=== PATIENT | male | born 1960 | race Caucasian/White ===

== ENCOUNTER 2019-11-22 07:09 | Outpatient (CLI) | payer OTHER, SELFPAY ==
--- NOTE | ~2019-11-22 | XR_ITS ---
EXAMINATION: XR shoulder LT min 2V DATE: 11/22/2019 07:35 INDICATION: Left shoulder pain. TECHNIQUE: 4 views of left shoulder were obtained. COMPARISON: None. FINDINGS: Bone alignment is normal. No fracture. There is mild osteoarthritis of glenohumeral joint a nd acromioclavicular joint characterized by tiny marginal osteophytes. IMPRESSION: 1. Mild polyarticular osteoarthritis. Reviewed, dictated and finalized at location A.
== END 2019-11-22 07:10 | disposition home or self-care (01) ==
DX: M25.512 Pain in left shoulder (principal); M19.012 Primary osteoarthritis, left shoulder
CPT/HCPCS: 73030

== ENCOUNTER 2020-12-17 09:16 | Outpatient (CLI) | payer OTHER, SELFPAY ==
--- NOTE | ~2020-12-17 | XR_ITS ---
XR hip RT min 3V w AP pelvis DATE: 12/17/2020 09:44 INDICATION: Chronic right hip pain. No known injury. TECHNIQUE: AP pelvis. AP, lateral, crosstable lateral views of right hip COMPARISON: None FINDINGS: No pelvic fracture or bone destruction. The pubic symphysis and sacroiliac joints are intac t. Hip joint spaces are symmetric and relatively well preserved. No fracture, dislocation, avascular necrosis or bone destruction of the right hip. IMPRESSION: No significant abnormality Reviewed, dictated and finalized at location B. IMPRESSION: No significant abnormality
== END 2020-12-17 09:17 | disposition home or self-care (01) ==
LOC: ANHIMG 09:23
DX: M25.551 Pain in right hip (principal)
CPT/HCPCS: 73502

== ENCOUNTER → 2022-11-16 08:35 | Outpatient (CLI) | payer OTHER, SELFPAY ==
--- NOTE | ~2022-11-16 | MR_ITS ---
EXAMINATION: MR elbow RT wo con DATE: 11/16/2022 10:56 INDICATION: Tear of the distal right biceps tendon TECHNIQUE: Magnetic resonance imaging (MRI) of the right elbow was performed without intravenous cont rast. Sequences included coronal, axial, and sagittal PD-weighted FS FSE and coronal, axial, and sagi ttal PD-weighted FSE. COMPARISON: None FINDINGS: Osseous/other: Normal alignment. Normal marrow signal with no marrow edema, fracture, osteochondral lesion or abnor mal marrow replacing process. Mild osteoarthritis involving all 3 compartments of the elbow joint. Tendons: Triceps and brachialis tendons are normal. Moderate tendinopathy without tear at the distal biceps br achii tendon. Moderate tendinopathy and a couple small heterotopic ossicles within the common flexor tendon wad and mild tendinopathy and additional tiny heterotopic ossicle at the origin of the common extensor tendon wad. This could be related to either chronic enthesopathy or sequela of old trauma. Ligaments: The medial and lateral collateral ligament complexes are normal. Cubital tunnel: Cubital tunnel is unremarkable with normal signal and caliber of the ulnar nerve. Fluid: Physiologic amount of fluid the elbow joint. IMPRESSION: 1. Moderate tendinopathy without discrete tear at the distal biceps brachii tendon. 2. Tendinopathy and heterotopic ossicles at the epicondylar origins of the common flexor and extensor tendon wads which could represent sequela of chronic enthesopathy or old trauma. 3. 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 Reviewed, dictated and finalized at location L. IMPRESSION: 1. Moderate tendinopathy without discrete tear at the distal biceps brachii ten don. 2. Tendinopathy and heterotopic ossicles at the epicondylar origins of the comm on flexor and extensor tendon wads which could represent sequela of chronic ent hesopathy or old trauma. 3. 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
== END ==
PROVIDERS: PCP Specialist; Visit Provider Specialist
DX: S46.211A Strain of muscle, fascia and tendon of other parts of biceps, right arm, initial encounter (principal); M19.021 Primary osteoarthritis, right elbow; T14.90XA Injury, unspecified, initial encounter
CPT/HCPCS: 73221

== ENCOUNTER 2023-12-31 12:58 | Outpatient (CLI) | payer OTHER, SELFPAY ==
--- NOTE | 2023-12-31 13:32 | ECG_ITS ---
Test Date: 2023-12-31 13:45:30 Measurements Intervals Virgil Rate: 60 P: 40 MS: 153 QRS: 6 QRSD: 110 T: 36 QT: 396 QTc: 396 Interpretive Statements SINUS RHYTHM No previous ECG available for comparison Electronically Signed On 01-01-2024 10:14:34 CDT by Julio Saenz M.D.
== END 2023-12-31 12:59 | disposition home or self-care (01) ==
PROVIDERS: PCP Family Medicine; Visit Provider Surgery
DX: I10 Essential (primary) hypertension (principal); Z98.890 Other specified postprocedural states; Z01.818 Encounter for other preprocedural examination
CPT/HCPCS: 36415; 86850; 86900; 86901; 93005

== ENCOUNTER 2024-01-03 01:12 | Day surgery (SDC) | payer OTHER, SELFPAY ==
[2023-12-31 08:23] VITALS: BMI 27.3
--- NOTE | 2023-12-31 08:50 | SUR.PREOP ---
Report to the Outpatient Waiting Room, entrance under the green pavilion located off [facility], at time 1000 on date 01/03/24. Planned Procedure Time: 1200. Time changes happen often and if your time is changed the preop area will call you the afternoon before. - You and your visitor will be asked to self-screen and do not enter if you have any COVID symptoms. - A mask is optional within the hospital at this time. Patients may have clear liquids (water, carbonated beverages, clear teas, apple juice) until 3 hours prior to surgery with a maximum of 20 ounces. - No food from midnight until time of surgery - Infants may have breast milk until 4 hours before surgery, infant formula 6 hours prior to surgery. - Children will be allowed to drink immediately following surgery. If applicable, please bring a bottle or sippy cup to assist with drinking. Juice, water, soda, and popsicles are readily available. For infants on formula, please bring formula the day of surgery. Pacifiers are allowed. Take the following medications with a SIP of water the morning of surgery: N/A DO NOT STOP ANY OF YOUR OTHER PRESCRIPTION MEDICATIONS PRIOR TO SURGERY ?EXCEPT THE FOLLOWING Medications to discontinue per physician STOP ALL VITAMINS AND SUPPLIMENTS 3 DAYS PRIOR TO PROCEDURE Date to take last dose TOLD PT TO NOT TAKE AGAIN UNTIL AFTER PROCEDURE ON 12/31/23 Please no make-up, nail mongolian, hairspray, perfume, deodorant, or body powder the day of surgery. No jewelry (including any body piercings) or valuables the day of surgery, leave them at home. Please take a shower or bath the night before, or the morning of, surgery with an antibacterial soap. Wear comfortable, loose fitting clothing. Children are encouraged to wear pajamas. - Jewelry must be removed prior to entering the operating room. Rings and piercings that are not removed may be cut off. - The hospital will not accept responsibility for valuables. - Please leave all valuables, including medications, at home the day of surgery. If you are going home after surgery, a licensed truck driver rubbish collector must drive you home. - NO public transportation without another adult if you receive anesthesia. - We recommend that an adult stay with you for 24 hours following discharge. - We also recommend that you do not drive, make important decision, drink alcoholic beverages, or take any drugs that were not prescribed by your health care provider for at least 24 hours after your discharge time. For Pediatric surgeries, we recommend two adults accompany the child home. Follow any additional instructions given to you from your surgeon. If you or anyone in your household have experienced Covid symptoms in the past week, please notify your surgeon or the nurse liaison at the phone number below for possible testing. Telephone instructions given to CARLY GARAY and asked if any additional questions and then verbalized understanding. Patient advised to call surgeon office or pre surgery nurse liaison [phone] if any additional questions.
[2024-01-03] VITALS (10 sets, daily range): BP systolic 107–164; BP diastolic 60–94; PULSE 57–71; RESP 10–16; TEMP 36.1; O2SAT 95–100
[2024-01-03] MEDS: ACETAMINOPHEN 500 MG TABLET 1000 MG PO (10:45)
[2024-01-03] MEDS: LACTATED RINGERS 1,000 ML 30 ML IV CONT ×3 (10:45→15:26)
[2024-01-03] MEDS: KETOROLAC 15 MG/ML VIAL (*BKC) IV PUSH (10:45)
--- NOTE | 2024-01-03 10:59 | WPDANESEPPF ---
Anes - Initial Pre Proc Eval Procedure: Operation Date: 01/03/24 12:00 Proposed Procedures p Robotic Left Inguinal Hernia Repair with Mesh - Uyen Chang MD Date/Time: 01/03/24 10:59 Surgeon: Uyen Chang MD Pre Op Diagnosis: left inguinal hernia Patient Data Age: 63 Gender: M Height: 1.75 m Weight: 82.8 kg Allergies Allergy/AdvReac Type Severity Reaction Status Date / Time bee venom protein (honey bee) Allergy Unknown Verified 01/03/24 10:53 Home Medications Medication Instructions Recorded Confirmed Type Saccharomyces boulardii 250 mg 250 mg PO BID 12/26/23 12/31/23 History capsule (Daily Probiotic (S. boulardii)) atorvastatin 10 mg tablet (Lipitor) 10 mg PO DAILY 12/26/23 12/31/23 History multivitamin 1 tablet PO DAILY 12/26/23 01/03/24 History omega 8-pgb-nub-fish oil 300 1 cap PO DAILY 12/26/23 12/31/23 History mg-1,000 mg capsule (Fish Oil) hydrochlorothiazide 25 mg tablet 25 mg PO DAILY 12/31/23 12/31/23 History Laboratory Tests 01/03/24 10:35 Sodium Pending Potassium Pending Chloride Pending Carbon Dioxide Pending Anion Gap Pending BUN Pending Creatinine Pending Estim Creat Clear Calc Pending Estimated GFR Pending Glucose Pending Calcium Pending Patient hx anesthesia problems: none Family hx anesthesia problems: none Results Review: All pre-operative results and documents have been reviewed as part of the pre-operative evaluation. [facility] Past Medical History Medical History Hyperlipidemia Hypertension Surgical History Surgical History History of right inguinal hernia repair Family History Family History Father Heart disease Hypertension Social History Social History Smoking status: Never smoker Alcohol intake: current Alcohol use details: Beer on the weekends Substance use: never Do You Feel Safe in your Home?: Yes Lack of Transportation: No Lack of Food: Never True Current Housing: I Have Housing Concerned About Future Housing: No Difficulty Paying Gas/Electric Bills: No Difficulty Paying for Meds: No Currently Unemployed: No Education: Trade/Vocational Certificate Difficulty w/ Childcare or Family Care: No Living arrangements: with friend(s) Occupation/Education: retired Spiritual care concerns: No Anes - Eval Final PreProcedure Day of Procedure 01/03/24 10:59 Patient weight: normal Heart: regular rate and rhythm Lungs: clear to auscultation Airway: Mallampati scale Neurological: alert and oriented Last oral intake: >/= 8 hours ASA classification: II Emergent: no Anesthetic plan: proceed Anesthesia type and monitoring: general ETT and standard monitoring Results Review: All pre-operative results and documents have been reviewed as part of the pre-operative evaluation. HTN, hyperlipidemia, pt very active without cp or sob. EKG NSR. Reports that stress test earlier this year was normal (not available to me). Informed Consent: The patient's anesthetic plan and its attendant risks and benefits were discussed with the patient/family/POA. Questions were solicited and answers provided to the satisfaction of the patient/family/POA.
[2024-01-03 11:17] LABS: Anion Gap 11 mmol/L (4-12); Blood Urea Nitrogen 26 mg/dL (9-20); Calcium 9.2 mg/dL (8.4-10.2); Carbon Dioxide 29 mmol/L (22-30); Chloride 98 mmol/L (98-107); Estimated CRCL calculation 74 ml/min; Estimated Glomerular Filt Rate > 60; Glucose 99 mg/dL (65-110); Potassium 3.7 mmol/L (3.4-5.0); Sodium 138 mmol/L (137-145)
--- NOTE | 2024-01-03 12:10 | WPDHPUPDATE1 ---
History and Physical Update Update Date/Time: 01/03/24 12:10 History and Physical has been reviewed, including an updated exam of the patient. There are NO changes in the patient's condition. Risks, benefits, and alternatives have been discussed and questions answered. Patient agrees to proceed with procedure.
[2024-01-03] MEDS: ceFAZolin 2 GM/D5W 50 ML 2 GM/50 ML BAG IVPB (12:17)
[2024-01-03] MEDS: BUPIVACAINE/EPINEPHRINE 0.5% 50 ML VIAL 30 ML INFILTRATE (13:12)
--- NOTE | 2024-01-03 13:40 | W.PM.PROC2 ---
Procedure Note - Detailed Date of Procedure 01/03/24 Pre-op Diagnosis left inguinal hernia Post-op Diagnosis Same Procedure Performed robotic assisted left inguinal hernia repair with mesh Surgeon Uyen Chang MD Anesthesia General Indications 63 y/o M c LIH and worsening symptomatology over the last few months Findings indirect left inguinal hernia Description of Procedure Patient was brought into the operating room and placed in the supine position. After adequate induction of general anesthesia, the patient was prepped and draped in normal sterile fashion. A time-out was then done to verify the patient's identity, as well as the procedure being performed. I began by making a 8 mm incision in the supraumbilical region, a Veress needle was then placed into the peritoneal cavity. CO2 gas was then insufflated and after adequate pneumoperitoneum was achieved, the Veress needle was removed. I then placed an 8 mm trocar through this incision. I then placed the endoscope through this trocar site and under direct visualization placed 2 further 8 mm ports in the right and left mid abdomen. The [employer] robot was then docked to the 3 trocar sites. I then scrubbed out and went to the robotic console. Upon examining the pelvis, it was noted that the patient had a moderate sized left inguinal hernia. The right side was examined and no hernia defect was noted. I began by making a preperitoneal flap approximately 6 cm superior to the defect. This flap was carried medially past the umbilical ligaments and laterally to the transversalis. It then began dissection of my medial compartment taking this down to the pubic tubercle. Just inferior to the pelvic tubercle there was some bleeding noted secondary to getting into a venous plexus. This was controlled with the cautery and suction. I then began the lateral dissection taking this down to the transversalis fascia. Once these compartments were achieved, I began dissection around the cord structures. A moderate sized indirect hernia was noted at this point. Using careful dissection, was able to reduce indirect hernia sac off the cord structures. Once this was adequately done, I went ahead and placed a large piece of 3D Max mesh into the abdominal cavity. The mesh was carefully positioned, centering the center of the mesh over the indirect defect. Once this was done, was very satisfied with our repair. Using 3-0 Vicryl sutures, I tacked the mesh medially to Jean's ligament. Two lateral sutures were placed from the mesh to the transversalis fascia. I then closed the peritoneal flap with a running 2.0 V Lock suture. The abdomen was then desufflated, and all ports were removed. All incisions were then closed with the 4.0 monocryl suture. Dermabond was placed on each wound. The patient tolerated the procedure well, was extubated in the operating room postoperatively, and will now be transferred to the recovery room in stable condition. Implants large 3DMax mesh Estimated Blood Loss 50 Drains No Packing No Pathology None sent Complications No immediate complications Condition Stable Disposition PACU [facility] Billing Surgery - Charge Forward: Surgery Billing
--- NOTE | 2024-01-03 14:12 | SUR.PHASEI ---
Simple mask removed at 1405.
[2024-01-03] MEDS: oxyCODONE HCL (*CRX) 5 MG TAB IR PO (15:12)
== END 2024-01-03 16:25 | disposition home or self-care (01) ==
PROVIDERS: Anesthesiology; PCP Family Medicine; Visit Provider Surgery
PROC: 8E0Y4CZ Robotic Assisted Procedure of Lower Extremity, Percutaneous Endoscopic Approach (ICD-10-PCS; CPT 49650; principal; 2024-01-03 12:00)
DX: K40.90 Unilateral inguinal hernia, without obstruction or gangrene, not specified as recurrent (principal); I10 Essential (primary) hypertension; E78.5 Hyperlipidemia, unspecified; Z98.890 Other specified postprocedural states; Z82.49 Family history of ischemic heart disease and other diseases of the circulatory system
CPT/HCPCS: 49650; S2900; 36415; 80048; 86850; 86900; 86901; 93005; A9270; C1781; J0690; J1100; J1170; J1885; J2250; J2405; J2704; J3010; J7120

== ENCOUNTER 2024-09-17 13:38 | Emergency (ER) | payer OTHER, SELFPAY ==
--- NOTE | ~2024-09-17 | XR_ITS ---
XR hand LT min 3V Ordering provider: Delfin Juarez MD History: . ring finger dorsal swelling . Comparison: None. FINDINGS: BONES: No acute fracture or dislocation. Old fracture of the first metacarpal bone with deformity is noted. Old fracture of the ulnar styloid is noted. JOINT SPACES: Narrowing of the proximal and distal interphalangeal joints. SOFT TISSUES: Unremarkable. IMPRESSION: No acute osseous abnormality left hand. Polyarticular osteoarthritic changes. Reviewed, dictated and finalized at location A.
--- OUTSIDE RECORDS SUMMARY | 2024-09-17 13:49 | XMS_ITS | Clinical Summary ---
Author Organization [facility] Address [facility] [place] [address] Care Team Providers Care Principal Network Architect Name Role Phone Dave Moody MD Primary Care Provider Allergies Active Allergy Reactions Criticality Noted Date Comments Cockroach Unknown 06/03/2018 COCKROACH DUST Medications atorvastatin 10 MG tablet 05/08/2018 Active fluticasone propionate (FLONASE) 50 MCG/ACT nasal spray SPRAY 2 SPRAYS IN EACH NOSTRIL ONCE DAILY NEEDED 03/28/2023 Active hydroCHLOROthia zide (HYDRODIURIL) 25 MG tablet Take 1 tablet (25 mg total) by mouth daily. 04/11/2023 Active terbinafine (LAMISIL) 250 MG tablet Take 1 tablet (250 mg total) by mouth daily. 01/30/2023 Active probiotic (FLORAJEN3) Cap capsule Take 1 capsule by mouth daily with breakfast. Active fish oil (OMEGA-3 FATTY ACID) 1000 MG Cap capsule Take 1 capsule (1,000 mg total) by mouth daily. Active sildenafil (REVATIO) 20 MG tablet Take 1 tablet (20 mg total) by mouth as needed. 04/30/2023 Active ibuprofen (MOTRIN) 800 MG tablet Take 1 tablet (800 mg total) by mouth every 12 (twelve) hours as needed for Pain. 06/04/2023 Active Active Problems No known active problems Family History Medical History Relation Comments Heart Disease Father Open Heart Father Stent Cardiac Father Stroke Father Valve Disease Father None Mother Heart Attack Paternal Grandfather Relation Status Comments Brother 1 Alive Brother 2 Alive Father Maternal Grandfather Maternal Grandmother Mother Alive Paternal Grandfather Paternal Grandmother Sister 1 Alive Sister 2 Alive Social History Tobacco Use Types Packs/Day Years Used Date Smoking Tobacco: Never Smokeless Tobacco: Never Alcohol Use Standard Drinks/Week Comments Yes 6 (1 standard drink = 0.6 oz pur e alcohol) Sex and Gender Information Value Date Recorded Sex Assigned at Not on file Legal Sex Male 5:12 PM CDT Gender Identity Not on file Sexual Orientation Not on file Last Filed Vital Signs Vital Sign Reading Time Taken Comments Blood Pressure 122/84 07/11/2023 12:37 PM NEWSSTAND VENDOR Pulse 72 07/11/2023 12:37 PM [employer]STAND VENDOR Temperature 36.3 C (97.4 F) 03/22/2020 10:55 AM [employer]STAND VENDOR Respiratory Rate 18 03/22/2020 10:55 AM NEWSSTAND VENDOR Oxygen Saturation 97% 07/11/2023 12:37 PM [employer]STAND VENDOR Inhaled Oxygen Concentration - - Weight 88.9 kg (196 lb) 07/11/2023 12:37 PM NEWSSTAND VENDOR Height 172.7 cm (5' 8 ) 07/11/2023 12:37 PM [employer]STAND VENDOR Body Mass Index 29.8 07/11/2023 12:37 PM NEWSSTAND VENDOR Plan of Treatment Upcoming Encounters Date Type Department Care Team (Late st Contact Info) Description 09/29/2024 11:00 AM CDT Appointment [facility] [address] [place] [address] Dave Moody MD [address] [place] [address] [address] [place] [id number] Health Maintenance Due Date Last Done Comments Colorectal Cancer Screening Colonoscopy (10 Years) 1960 Annual Physical 1963 Hepatitis C 1978 DTaP, Tdap and Td Vaccines ( 1 - Tdap) 1979 Pneumococcal Vaccine: 50+ Years (1 of 1 - PCV) 2010 COVID-19 Vaccine (4 - 2023-2 5 season) 2024 12/14/2021, 05/16/2021, 07/26/2020 RSV Immunization or 60+ Years (1 - 1-dose 75+ series) 2035 Zoster Vaccines Completed 09/09/2021, 05/16/2021 Meningococcal B Vaccine Aged Out No l onger eligible based on patient's age to complete this topic Meningococcal Vaccine Aged Out No susanna farooq eligible based on patient's age to complete this topic RSV Immunizations Under 20 Months Aged Out No longer eligible b ased on patient's age to complete this topic Insurance AETNA AETNA Care Teams Principal Network Architect Relationship Specialty Start Date End Date Dave Moody MD [address] [place] [address] [address] [place] [address] PCP - General FAMILY PRACTICE 06/03/18
--- OUTSIDE RECORDS SUMMARY | 2024-09-17 13:49 | XMS_ITS | Encounter Summary ---
Author Organization [facility] Address [facility] [place] [address] Care Team Providers Care Assembler Crimper Name Role Phone Dave Moody MD Primary Care Provider Encounter Details Date Type Department Care Team (Late Contact Info) Description 04/25/2023 Abstract [facility] [address] [address] Timothy Goldsmith MA Social History Tobacco Use Types Packs/Day Years Used Date Smoking Tobacco: Never Smokeless Tobacco: Never Alcohol Use Standard Drinks/Week Comments Yes 0 (1 standard drink = 0.6 oz pur e alcohol) RARE Sex and Gender Information Value Date Recorded Sex Assigned at Not on file Legal Sex Male 5:12 PM CDT Gender Identity Not on file Sexual Orientation Not on file documented as of this encounter Plan of Treatment Upcoming Encounters Date Type Department Care Team (Late Contact Info) Description 09/29/2024 11:00 AM CDT Appointment [facility] [address] [place] [address] Dave Moody MD [address] [place] [address] [address] documented as of this encounter Procedures Procedure Name Priority Date/Time Associated Diagnosis Comments HEMOGLOBIN, GLYCOSYLATED Routine 01/30/2023 COMPREHENSIVE METABOLIC PANEL Routine 01/30/2023 LIPID PANEL Routine 01/30/2023 CBC, MANUAL DIFF Routine 01/30/2023 THYROID STIM HORMONE TSH Routine 01/30/2023 documented in this encounter Results * (ABNORMAL) COMPREHENSIVE METABOLIC PANEL (01/30/2023) SODIUM S/P/B 141 GLUCOSE 93 mg/dL AST 15 BUN 16 CREATININE S/P/B 0.33(A) 0.7 - 1.3 CALCIUM S/P/B 8.9 POTASSIUM S/P/B 4.2 CHLORIDE S/P/B 103 ALT 14 GFR ESTIMATE 99 us Default History Genericprovider LABORATORY Edited Result - Final * LIPID PANEL (01/30/2023) CHOLESTEROL 165 TRIGLYCERIDES 155 HDL 45 LDL (CALCULATED) 93 us Default History Genericprovider LABORATORY Edited Result - Final * CBC, MANUAL DIFF (01/30/2023) Pathologist [facility] [place] WBC 5.5 HGB 14.6 HCT 44.6 PLT 228 us Default History Genericprovider LABORATORY Edited Result - Final * HEMOGLOBIN, GLYCOSYLATED (01/30/2023) Pathologist [facility] [place] HGB A1C 5.6 % us Default History Genericprovider LABORATORY Edited Result - Final * THYROID STIM HORMONE, TSH (01/30/2023) TSH 1.410 us Default History Genericprovider LABORATORY Edited Result - Final documented in this encounter Visit Diagnoses Not on filedocumented in this encounter Care Teams Assembler Crimper Relationship Specialty Start Date End Date Dave Moody MD [address] [place] [address] [place] [id number] PCP - General FAMILY PRACTICE 06/03/18 documented as of this encounter
[2024-09-17 13:56] VITALS: BP 130/73; PULSE 60; RESP 17; TEMP 36.5; O2SAT 98
--- NOTE | 2024-09-17 14:42 | ED_ITS ---
HPI - Skin/Abscess/Foreign Bdy General Chief complaint: Skin/Abscess/Foreign Body <Mei Phelps PA-C - Last Filed: 09/19/24 09:29> Stated complaint: Swelling/redness to left ring finger <Mei Phelps PA-C - Last Filed: 09/19/24 09:29> Time Seen by Provider: 09/17/24 14:42 <Mei Phelps PA-C - Last Filed: 09/19/24 09:29> Focused HPI: This is a 64 year old male that presents to the ER for redness and swelling to the left 4th finger ongoing over the last 4 days. He was seen at urgent care and is taking Cephalexin without relief. Reports some drainage to the area. Denies fevers. GENERAL: Well-appearing, well-nourished, and in no acute distress. HEAD: Normocephalic, atraumatic. CHEST: Clear to auscultation. ?No respiratory distress. HEART: Regular rate and rhythm.? EXTREMITIES: Left 4th finger dorsal surface with area of edema and erythema with central fluctuance, able to express purulence NEURO: ?Alert and oriented x3. Patient screened in triage and initial orders placed.? ?Additional care and disposition to be based upon?diagnostic testing and treatment. <Mei hPelps PA-C - Last Filed: 09/19/24 09:29> History of Present Illness HPI narrative: Agree with the HPI above. Patient tells me he had a pimple on the dorsum of his left ring finger that he tried to pop and then the swelling and pain started afterwards. Does not extend into the dorsum of the hand, does not track to the proximal knuckle or distal finger tip, no restricted range of motion or any circumferential swelling <Delfin Juarez MD - Last Filed: 09/17/24 17:38> Related Data Home medications: Home Medications ?Medication ?Instructions ?Recorded ?Confirmed ?Last Taken ?Type Saccharomyces boulardii 250 mg 250 mg PO BID 12/26/23 01/16/24 12/30/23 History capsule (Daily Probiotic (S. boulardii)) atorvastatin 10 mg tablet (Lipitor) 10 mg PO DAILY 12/26/23 01/16/24 12/31/23 History multivitamin 1 tablet PO DAILY 12/26/23 01/16/24 12/30/23 History omega 5-czy-hbf-fish oil 300 1 cap PO DAILY 12/26/23 01/16/24 12/30/23 History mg-1,000 mg capsule (Fish Oil) hydrochlorothiazide 25 mg tablet 25 mg PO DAILY 12/31/23 01/16/24 12/31/23 History <Mei Phelps PA-C - Last Filed: 09/19/24 09:29> Allergies/Adverse reactions: Allergies Allergy/AdvReac Type Severity Reaction Status Date / Time bee venom protein (honey bee) Allergy Unknown Verified 09/17/24 13:39 <Mei Phelps PA-C - Last Filed: 09/19/24 09:29> Review of Systems 2 Review of Systems: agree with the HPI above <Delfin Juarez MD - Last Filed: 09/17/24 17:38> [facility] Past Medical History Medical History: Medical History Hyperlipidemia Hypertension <Mei Phelps PA-C - Last Filed: 09/19/24 09:29> Surgical History Surgical History: Surgical History Hx of left inguinal hernia repair da [facility] repair w mesh 01/03/24 Dr. Uyen Chang History of right inguinal hernia repair <Mei Phelps PA-C - Last Filed: 09/19/24 09:29> Family History Family History: Family History Father Heart disease Hypertension <Mei Phelps PA-C - Last Filed: 09/19/24 09:29> Social History Social History: Social History Smoking status: Never smoker Alcohol intake: current Alcohol use details: Beer on the weekends Substance use: never Do You Feel Safe in your Home?: Yes Lack of Transportation: No Lack of Food: Never True Current Housing: I Have Housing Concerned About Future Housing: No Difficulty Paying Gas/Electric Bills: No Difficulty Paying for Meds: No Currently Unemployed: No Education: Trade/Vocational Certificate Difficulty w/ Childcare or Family Care: No Living arrangements: with friend(s) Occupation/Education: retired Spiritual care concerns: No <Mei Phelps PA-C - Last Filed: 09/19/24 09:29> Exam 2 Narrative: GENERAL: [Well-appearing, well-nourished, and in no acute distress.] HEAD: [Normocephalic, atraumatic.] EYES: [PERRLA and EOMI.] ENT: Nares clear, no rhinorrhea or epistaxis. Mucous membranes moist. NECK: Supple. CHEST: [Clear to auscultation. No respiratory distress.] HEART: [Regular rate and rhythm]. No murmur heard. [Normal peripheral pulses.] ABDOMEN: [Soft, nondistended], [nontender], [No rigidity or guarding] EXTREMITIES: Normal range of motion. left ring finger with some dorsal swelling very punctate appearing wound with some overlying redness and minimal purulent drainage. No pain with passive extension, no percussive tenderness along the flexor or extensor tendons, no uniform swelling identified, no flexion posture and he has good range of motion of the MCP PIP and D IP joint with flexion and extension. good capillary refill SKIN: Warm, dry, no rash. NEURO: [No focal deficits]. Alert and oriented [x3.] PSYCH: [Normal mood and affect.] <Delfin Juarez MD - Last Filed: 09/17/24 17:38> Course Vital Signs Vital signs: Vital Signs Temperature 97.7 F 09/17/24 13:56 Pulse Rate 60 09/17/24 13:56 Respiratory Rate 17 09/17/24 13:56 Blood Pressure 130/73 09/17/24 13:56 Pulse Oximetry 98 09/17/24 13:56 Oxygen Delivery Room Air 09/17/24 13:56 Temperature 98.7 F 09/17/24 19:23 Pulse Rate 77 09/17/24 19:23 Respiratory Rate 18 09/17/24 19:23 Blood Pressure 130/60 09/17/24 19:23 Pulse Oximetry 100 09/17/24 19:23 Oxygen Delivery Room Air 09/17/24 13:56 <Mei Phelps PA-C - Last Filed: 09/19/24 09:29> Vital Signs Temperature 97.7 F 09/17/24 13:56 Pulse Rate 60 09/17/24 13:56 Respiratory Rate 17 09/17/24 13:56 Blood Pressure 130/73 09/17/24 13:56 Pulse Oximetry 98 09/17/24 13:56 Oxygen Delivery Room Air 09/17/24 13:56 Temperature 98.7 F 09/17/24 19:23 Pulse Rate 77 09/17/24 19:23 Respiratory Rate 18 09/17/24 19:23 Blood Pressure 130/60 09/17/24 19:23 Pulse Oximetry 100 09/17/24 19:23 Oxygen Delivery Room Air 09/17/24 13:56 <Delfin Juarez MD - Last Filed: 09/17/24 17:38> MDM - Skin/Abscess/Foreign Bdy MDM Narrative Medical decision making narrative: 64-year-old male presenting to the emergency room with left ring finger swelling. Patient states that he had a pimple on the dorsal left ring finger that he tried to pop several days ago and then appear to been infected afterwards. He went to urgent care on Sunday and was started on Keflex. Swelling came down but the redness and drainage is still present and he was instructed to go the ER but was not significantly improving. No fever chills. No other injury or trauma. No hand surgeries in the past. Normal vital signs present. left ring finger with some dorsal swelling very punctate appearing wound with some overlying redness and minimal purulent drainage. No pain with passive extension, no percussive tenderness along the flexor or extensor tendons, no uniform swelling identified, no flexion posture and he has good range of motion of the MCP PIP and DIP joint with flexion and extension. suspicion presently is for superficial cellulitis, folliculitis, low suspicion osteomyelitis and very low suspicion tenosynovitis. workup ordered including inflammatory markers, CBC, electrolytes. given a dose of vancomycin for MRSA coverage until workup complete. patient's workup was rather reassuring with no leukocytosis or inflammatory marker elevations. Normal electrolytes and renal function. Patient will be safe for discharge home at this time and prescription for Bactrim provided for MRSA coverage. Patient's questions were answered he was safe for discharge home at this time. <Delfin Juarez MD - Last Filed: 09/17/24 17:38> Medical Records Attestation: I reviewed the patient's medical records. <Delfin Juarez MD - Last Filed: 09/17/24 17:38> Lab Data Attestation: I reviewed the patient's lab results. <Delfin Juarez MD - Last Filed: 09/17/24 17:38> Result diagrams: 09/17/24 16:02 09/17/24 16:02 <Mei Phelps PA-C - Last Filed: 09/19/24 09:29> Labs: Lab Results 09/17/24 Range/Units 16:02 WBC 7.5 (4.5-10.0) K/mm3 RBC 5.34 (4.6-6.20) M/mm3 Hgb 15.5 (14.0-18.0) g/dL Hct 46.0 (42.0-52.0) % MCV 86.1 (80-100) fl MCH 29.0 (26-34) pg MCHC 33.7 (32-36) g/dl RDW 11.9 (11.5-14.5) % Plt Count 224 (150-375) k/mm3 MPV 10.0 (7.4-10.4) fl Immature Gran % (Auto) 0.3 (0-0.5) % Neut % (Auto) 64.0 (45.5-73.1) % Lymph % (Auto) 27.5 (18.3-44.2) % [place] % (Auto) 5.6 (2.6-8.5) % Eos % (Auto) 2.1 (0-4.4) % Baso % (Auto) 0.5 (0.2-1.2) % Lymph # (Auto) 2.07 (0.9-3.2) K/mm3 [place] # (Auto) 0.4 (0.1-0.6) K/mm3 Eos # (Auto) 0.2 (0-0.3) K/mm3 Baso # (Auto) 0.0 (0.0-0.1) K/mm3 Abs Immat Gran (auto) 0.02 (0.00-0.031) K/mm3 Absolute Neuts (auto) 4.8 (1.3-6.7) K/mm3 Absolute Nucleated RBC 0.000 (0.0-0.012) K/mm3 Nucleated RBC % 0.0 (0.0-0.2) % ESR 4 (0-20) mm/hr Sodium 139 (137-145) mmol/L Potassium 3.8 (3.4-5.0) mmol/L Chloride 99 (98-107) mmol/L Carbon Dioxide 32 H (22-30) mmol/L Anion Gap 8 (4-12) mmol/L BUN 18 (9-20) mg/dL Creatinine 0.87 (0.7-1.3) mg/dL Estim Creat Clear Calc 75 ml/min Estimated GFR > 60 (59 - ) Glucose 88 (65-110) mg/dL Calcium 9.5 (8.4-10.2) mg/dL C-Reactive Protein < 0.5 (<1.0) mg/dL <Mei Phelps PA-C - Last Filed: 09/19/24 09:29> Lab Results 09/17/24 Range/Units 16:02 WBC 7.5 (4.5-10.0) K/mm3 RBC 5.34 (4.6-6.20) M/mm3 Hgb 15.5 (14.0-18.0) g/dL Hct 46.0 (42.0-52.0) % MCV 86.1 (80-100) fl MCH 29.0 (26-34) pg MCHC 33.7 (32-36) g/dl RDW 11.9 (11.5-14.5) % Plt Count 224 (150-375) k/mm3 MPV 10.0 (7.4-10.4) fl Immature Gran % (Auto) 0.3 (0-0.5) % Neut % (Auto) 64.0 (45.5-73.1) % Lymph % (Auto) 27.5 (18.3-44.2) % [place] % (Auto) 5.6 (2.6-8.5) % Eos % (Auto) 2.1 (0-4.4) % Baso % (Auto) 0.5 (0.2-1.2) % Lymph # (Auto) 2.07 (0.9-3.2) K/mm3 [place] # (Auto) 0.4 (0.1-0.6) K/mm3 Eos # (Auto) 0.2 (0-0.3) K/mm3 Baso # (Auto) 0.0 (0.0-0.1) K/mm3 Abs Immat Gran (auto) 0.02 (0.00-0.031) K/mm3 Absolute Neuts (auto) 4.8 (1.3-6.7) K/mm3 Absolute Nucleated RBC 0.000 (0.0-0.012) K/mm3 Nucleated RBC % 0.0 (0.0-0.2) % ESR 4 (0-20) mm/hr Sodium 139 (137-145) mmol/L Potassium 3.8 (3.4-5.0) mmol/L Chloride 99 (98-107) mmol/L Carbon Dioxide 32 H (22-30) mmol/L Anion Gap 8 (4-12) mmol/L BUN 18 (9-20) mg/dL Creatinine 0.87 (0.7-1.3) mg/dL Estim Creat Clear Calc 75 ml/min Estimated GFR > 60 (59 - ) Glucose 88 (65-110) mg/dL Calcium 9.5 (8.4-10.2) mg/dL C-Reactive Protein < 0.5 (<1.0) mg/dL <Delfin Juarez MD - Last Filed: 09/17/24 17:38> Imaging Data Attestation: I personally reviewed and interpreted this imaging study as follows: < Delfin Juarez MD - Last Filed: 09/17/24 17:38> My impression: Impressions Hand X-Ray 09/17/24 15:53 IMPRESSION: No acute osseous abnormality left hand. Polyarticular osteoarthritic changes. <Delfin Juarez MD - Last Filed: 09/17/24 17:38> Critical Care Time Critical Care Time Critical Care Time: No <Mei Phelps PA-C - Last Filed: 09/19/24 09:29> Discharge Plan Discharge Clinical Impression: Cellulitis of finger of left hand <Mei Phelps PA-C - Last Filed: 09/19/24 09:29> Patient Disposition: Home <Mei Phelps PA-C - Last Filed: 09/19/24 09:29> Condition: Stable <MAN Tello Last Filed: 09/19/24 09:29> Instructions: Antibiotic Form, Cellulitis (ED) <Mei Phelps PA-C - Last Filed: 09/19/24 09:29> Additional Instructions: your laboratory studies and imaging are all reassuring, no signs of systemic infection or inflammatory process and your symptoms are very likely secondary to a bacterial cellulitis of the superficial soft tissues in the finger. No deep space or bony involvement. We will change antibiotics and prescribe you Bactrim for the next 7 days. Take this medication twice daily and stop taking the other antibiotic they were prescribed. Follow-up with your primary care provider and will also provide you a hand specialist to contact if this is a recurrent or worsening concern. Return to the ER if you notice any worsening pain, circumferential swelling, inability to move the digit or any other concerns. <Mei Phelps PA-C - Last Filed: 09/19/24 09:29> Patient Language: [place] Islander <Mei Phelps PA-C - Last Filed: 09/19/24 09:29> Prescriptions: New sulfamethoxazole-trimethoprim [Bactrim DS] 800-160 mg tablet 1 tablet PO Q12H Qty: 14 0RF No Action atorvastatin [Lipitor] 10 mg tablet 10 mg PO DAILY omega 2-yzo-pks-fish oil [Fish Oil] 300-1,000 mg capsule 1 cap PO DAILY multivitamin Tablet 1 tablet PO DAILY Saccharomyces boulardii [Daily Probiotic (S. boulardii)] 250 mg capsule 250 mg PO BID cyclobenzaprine 10 mg tablet 10 mg PO TID PRN (Reason: muscle spasm) Qty: 30 0RF tramadol 50 mg tablet 50 mg PO Q6H PRN (Reason: pain) Qty: 30 0RF hydrochlorothiazide 25 mg tablet 25 mg PO DAILY <MAN Tello Last Filed: 09/19/24 09:29> Follow-up/Referrals: Sandra Waddell MD [Physician] - 1 Week ( Left ring finger cellulitis) Heidy,Dave Trinidad MD [Primary Care Provider] - <Mei Phelps PA-C - Last Filed: 09/19/24 09:29> Time of Disposition: 17:37 <Mei Phelps PA-C - Last Filed: 09/19/24 09:29> 17:37 <Delfin Juarez MD - Last Filed: 09/17/24 17:38>
--- OUTSIDE RECORDS SUMMARY | 2024-09-17 14:48 | XMS_ITS | Encounter Summary ---
Author Organization [facility] Address [facility] [place] [address] Care Team Providers Care Professor Of Marketing Name Role Phone Dave Moody MD Primary Care Provider Encounter Details Date Type Department Care Team (Late Contact Info) Description 04/25/2023 Abstract [facility] [address] [address] Timothy Goldsmith MA Social History Tobacco Use [...] Info) Description 09/29/2024 11:00 AM CDT Appointment [facility] [address] [place] [address] Dave Moody MD [address] [place] [address] [address] documented as of this encounter Procedures Procedure [...] Final * CBC, MANUAL DIFF (01/30/2023) Pathologist [facility] WBC 5.5 HGB 14.6 HCT 44.6 PLT 228 us Default History Genericprovider LABORATORY Edited Result - Final * HEMOGLOBIN, GLYCOSYLATED (01/30/2023) Pathologist [facility] HGB A1C 5.6 % us Default History Genericprovider LABORATORY Edited Result - Final * THYROID STIM HORMONE, TSH (01/30/2023) TSH 1.410 us Default History Genericprovider LABORATORY Edited Result - Final documented in this encounter Visit Diagnoses Not on filedocumented in this encounter Care Teams Professor Of Marketing Relationship Specialty Start Date End Date Dave Moody MD [address] [place] [address] [place] [id number] PCP - General FAMILY PRACTICE 06/03/18 documented as of this encounter
--- OUTSIDE RECORDS SUMMARY | 2024-09-17 14:48 | XMS_ITS | Clinical Summary ---
Author Organization [facility] Address [facility] [place] [address] Care Team Providers Care Sales Service Professional Name Role Phone Dave Moody MD Primary [...] Comments Blood Pressure 122/84 07/11/2023 12:37 PM LEAD SOFTWARE DEVELOPER Pulse 72 07/11/2023 12:37 PM LEAD SOFTWARE DEVELOPER Temperature 36.3 C (97.4 F) 03/22/2020 10:55 AM LEAD SOFTWARE DEVELOPER Respiratory Rate 18 03/22/2020 10:55 AM LEAD SOFTWARE DEVELOPER Oxygen Saturation 97% 07/11/2023 12:37 PM LEAD SOFTWARE DEVELOPER Inhaled Oxygen Concentration - - Weight 88.9 kg (196 lb) 07/11/2023 12:37 PM LEAD SOFTWARE DEVELOPER Height 172.7 cm (5' 8 ) 07/11/2023 12:37 PM LEAD SOFTWARE DEVELOPER Body Mass Index 29.8 07/11/2023 12:37 PM LEAD SOFTWARE DEVELOPER Plan of Treatment Upcoming Encounters Date Type Department Care Team (Late st Contact Info) Description 09/29/2024 11:00 AM CDT Appointment [facility] [address] [place] [address] Dave Moody MD [address] [place] [address] [address] [place] [id number] Health Maintenance Due Date Last Done Comments [...] this topic Insurance AETNA AETNA Care Teams Sales Service Professional Relationship Specialty Start Date End Date Dave Moody MD [address] [place] [address] [address] [place] [address] PCP - General FAMILY PRACTICE 06/03/18
--- NOTE | 2024-09-17 15:04 | PC.NURSE ---
pt started cephalexin on Sunday - takes 4 tablets a day
[2024-09-17 16:09] LABS: Basophils Percent Auto 0.5 % (0.2-1.2); Eosinophils Absolute Auto 0.2 K/mm3 (0-0.3); Eosinophils Percent Auto 2.1 % (0-4.4); Hemoglobin 15.5 g/dL (14.0-18.0); Immature Granulocyte Absolute 0.02 K/mm3 (0.00-0.031); Immature Granulocyte Percent A 0.3 % (0-0.5); Lymphocytes Absolute Auto 2.07 K/mm3 (0.9-3.2); Lymphocytes Percent Auto 27.5 % (18.3-44.2); Mean Corpuscular HGB Conc 33.7 g/dl (32-36); Mean Corpuscular Volume 86.1 fl (80-100); Monocytes Absolute Auto 0.4 K/mm3 (0.1-0.6); Monocytes Percent Auto 5.6 % (2.6-8.5); Neutrophils Absolute Auto 4.8 K/mm3 (1.3-6.7); Platelet Count Result 224 k/mm3 (150-375); Red Blood Count 5.34 M/mm3 (4.6-6.20); Red Cell Distribution Width 11.9 % (11.5-14.5); White Blood Count 7.5 K/mm3 (4.5-10.0)
[2024-09-17 16:30] LABS: Anion Gap 8 mmol/L (4-12); Blood Urea Nitrogen 18 mg/dL (9-20); Calcium 9.5 mg/dL (8.4-10.2); Carbon Dioxide 32 mmol/L (22-30); Chloride 99 mmol/L (98-107); Estimated CRCL calculation 75 ml/min; Estimated Glomerular Filt Rate > 60; Glucose 88 mg/dL (65-110); Potassium 3.8 mmol/L (3.4-5.0); Sodium 139 mmol/L (137-145)
[2024-09-17 16:41] LABS: Erythrocyte Sedimentation Rate 4 mm/hr (0-20)
[2024-09-17] MEDS: VANCOMYCIN 1,500 MG/NS 500 ML 1,500 MG/500 ML BAG 250 MG IVPB (16:57)
[2024-09-17 17:30] LABS: CRP < 0.5 mg/dL (<1.0)
[2024-09-17 19:23] VITALS: BP 130/60; PULSE 77; RESP 18; TEMP 37.1; O2SAT 100
== END 2024-09-17 19:09 | disposition home or self-care (01) ==
PROVIDERS: Emergency Provider Student in an Organized Health Care Education/Training Program; PCP Family Medicine
DX: L03.012 Cellulitis of left finger (principal); E78.5 Hyperlipidemia, unspecified; I10 Essential (primary) hypertension
CPT/HCPCS: 36415; 73130; 80048; 85025; 85652; 86140; 87070; 87075; 87181; 87205; 96365; 96366; 99284; J3370